=== PATIENT | male | born 1970 | race Caucasian/White ===

== ENCOUNTER → 2016-10-21 | Outpatient (CLI) | payer OTHER ==
--- NOTE | 2016-10-21 17:59 | REP ---
Clinical: Pain. Trauma/injury. . Technique: AP, lateral, bilateral oblique views. Findings: No acute fracture or dislocation. Skeletal structures and joint spaces are intact and normal. Ankle mortise appears stable. No subcutaneous emphysema or radiodense foreign body. Impression: Normal left ankle radiograph series. Signed by Fidencio Copeland MD 10/21/2016 05:51 P
== END ==
LOC: M LRY 17:27
PROVIDERS: ATTEND Physician Assistant
DX: S99.912A Unspecified injury of left ankle, initial encounter (principal); M25.572 Pain in left ankle and joints of left foot; X58.XXXA Exposure to other specified factors, initial encounter; Y92.9 Unspecified place or not applicable; Y93.9 Activity, unspecified; Y99.9 Unspecified external cause status

== ENCOUNTER → 2018-08-18 | Outpatient (CLI) | payer OTHER | LOC: M SLEEP 19:47 | DX: G47.33 Obstructive sleep apnea (adult) (pediatric) (principal); R40.0 Somnolence | CPT/HCPCS: 95810 ==

== ENCOUNTER → 2018-11-11 | Outpatient (CLI) | payer OTHER ==
--- NOTE | 2018-11-15 10:14 | SLEEPCENT ---
DATE OF STUDY: 11/11/2018 ORDERED BY: Chandrika Davis Nocturnal polysomnography was performed for the titration of pressure therapy in this patient with obstructive sleep apnea syndrome. Apnea-hypopnea index 25. For testing, the patient was fit with a [employer] Simplus full face mask of medium size, 4 cm of water pressure were applied to the circuit and the lights were extinguished. 8 hours of data were reviewed. There were only 425 minutes of sleep identified. Sleep latency was short at 4.5 minutes. REM latency was short at 57 minutes. Sleep architecture was fairly good. Some fragmentation was seen later in the study. Overall sleep efficiency was 90%. The patient's electrocardiogram showed a sinus rhythm with an average heart rate of 65 beats per minute. EEG showed normal waveforms for awake and sleep. Respiratory events were fully palliated with CPAP at a pressure of +8 with occasional activity seen in the limb leads. Limb movement arousal index was 6.9. IMPRESSION: Obstructive sleep apnea syndrome (G47.33). RECOMMENDATION: Nightly use of pressure therapy, 8 cm of water.
== END ==
LOC: M SLEEP 20:00
PROVIDERS: ATTEND Nurse Practitioner Family
DX: G47.33 Obstructive sleep apnea (adult) (pediatric) (principal)